=== PATIENT | female | born 1985 | race Caucasian/White ===

== ENCOUNTER 2016-07-14 02:25 | Inpatient (IN) | payer MEDICAID ==
[~2016-07-14] VITALS: Ht 165.1 cm; Wt 66.9 kg
[~2016-07-14 02:25] MED LIST: ACET325T33 PO; CALC-649 PO; FERR27TA PO; NITR-58 PO; PREN1TAB49 PO
[2016-07-14 03:02] VITALS: BP 116/60; PULSE 73; Ht 165.1 cm; Wt 66.9 kg
[2016-07-14] MEDS: LACTATED RINGER'S 1,000 ML IV SCH ×5 (03:30→16:47)
[2016-07-14] MEDS ORDERED: BUTORPHANOL 2 MG INJ IV PRN (09:30)
[2016-07-14] MEDS ORDERED: LIDOCAINE 1% (MPF) 30 ML INJ INJ PRN (09:30)
[2016-07-14] MEDS ORDERED: OXYTOCIN 30 UNITS/LR 500 ML IV SCH ×3 (09:30→11:00)
[2016-07-14] MEDS ORDERED: MISOPROSTOL 200 MCG TAB PR PRN ×3 (09:30→15:30)
[2016-07-14] MEDS ORDERED: AMPICILLIN 2 GM/NS (PMX) 100 ML IV ONE (09:30)
[2016-07-14] MEDS ORDERED: LACTATED RINGER'S 1,000 ML IV PRN (09:30)
[2016-07-14] MEDS ORDERED: OXYTOCIN 30 UNITS/LR 500 ML IV PRN ×3 (09:30→15:30)
[2016-07-14] MEDS ORDERED: CARBOPROST 250 MCG INJ IM PRN ×3 (09:30→15:30)
[2016-07-14] MEDS ORDERED: IBUPROFEN 600 MG TAB PO PRN (09:30)
[2016-07-14] MEDS ORDERED: METHYLERGONOVINE 0.2 MG INJ IM PRN ×3 (09:30→15:30)
[2016-07-14 10:05] LABS: ADD SCAN DIFF NO
[2016-07-14 10:09] LABS: BASOPHIL # 0.1 10^3/ul (0.0-0.1); BASOPHILS % 0.7 % (0.0-2.0); EOSINOPHILS # 0.1 10^3/ul (0.0-0.5); EOSINOPHILS % 0.6 % (0.0-7.0); HEMATOCRIT 41.5 % (37.0-47.0); HEMOGLOBIN 13.8 g/dl (12.0-16.0); LYMPHOCYTES # 1.7 10^3/ul (0.8-2.9); LYMPHOCYTES % 20.6 % (15.0-51.0); MEAN CORPUSCULAR HEMOGLOBIN 31.7 pg (29.0-33.0); MEAN CORPUSCULAR HGB CONC 33.3 g/dl (32.0-37.0); MEAN CORPUSCULAR VOLUME 95.2 fl (82.0-101.0); MEAN PLATELET VOLUME 11.1 fl (7.4-10.4); MONOCYTE # 0.9 10^3/ul (0.3-0.9); MONOCYTES % 10.7 % (0.0-11.0); NEUTROPHIL # 5.2 10^3/ul (1.6-7.5); NEUTROPHILS % 63.2 % (39.0-77.0); PLATELET COUNT 304 10^3/UL (140-415); RED BLOOD COUNT 4.36 10^6/ul (4.20-5.40); RED CELL DISTRIBUTION WIDTH 14.3 % (11.5-14.5); WHITE BLOOD COUNT 8.2 10^3/ul (4.8-10.8)
[2016-07-14 10:29] LABS: INR 0.88; PROTIME 11.9 Sec (12.2-14.2); PT RATIO 0.9
[2016-07-14 10:30] LABS: PARTIAL THROMBOPLASTIN TIME 28.6 Sec (25.0-35.0)
--- NOTE | 2016-07-14 10:36 | RADRPT ---
PROCEDURE: US OB. CLINICAL INDICATION: Size and dates , labor pain TECHNIQUE: Multiple sonographic images of the pelvis and gravid uterus were obtained. The images were reviewed on a PACS workstation. COMPARISON: No prior studies are available for comparison. FINDINGS: There is a single viable intrauterine gestation. Cardiac activity is present with 130 beats per min alexus. There is a transverse head maternal right presentation. The placenta is anterior. There is no evidence for an abruption or placenta previa. The placenta is thickened measuring 7.3 cm in thickness. Measurements were made in order to determine age. The results are as follows: BPD =9.9 cm HC =35.7 cm AC =37.9 cm FL =7.4 cm Estimated gestational age of approximately 40 weeks and 4 days based on ultrasound measurements. Clinical age: 38 weeks and 6 days. The EFW = 4263 g, >97%, based on LMP age. RPTAT: AA IMPRESSION: Single viable intrauterine gestation of approximately 40 weeks and 4 days based on ultrasound measu rements. Larger than clinical age by approximately 2 weeks. Thickened anterior placenta. .Ronak Centeno MD, Date Time Electronically viewed and signed by .Ronak Centeno MD, MD on 07/14/2016 10:35 .S/
[2016-07-14] MEDS ORDERED: HYDROmorphONE 1 MG/ML SYG IV PRN ×2 (11:00)
[2016-07-14] MEDS ORDERED: ONDANSETRON 4 MG INJ IV PRN ×2 (11:00)
[2016-07-14] MEDS ORDERED: MEPERIDINE 25 MG INJ IV PRN (11:00)
[2016-07-14] MEDS ORDERED: METOCLOPRAMIDE 10 MG INJ IV PRN (11:00)
[2016-07-14] MEDS ORDERED: FENTAnyl 50 MCG/ML VIAL IV PRN ×2 (11:00)
[2016-07-14] MEDS ORDERED: HYDROmorphONE (0.2 MG/ML) 10ML SYG IV PRN ×3 (11:00)
[2016-07-14] MEDS ORDERED: DIPHENHYDRAMINE 50 MG INJ IV PRN (11:00)
[2016-07-14] MEDS ORDERED: NALOXONE (0.4 MG/ML) INJ IV PRN (11:00)
[2016-07-14] MEDS ORDERED: CEFAZOLIN 2 GM/50 ML (PMX) 50 ML IV SCH (11:00)
[2016-07-14] MEDS ORDERED: morphine 2 MG INJ IV PRN ×2 (11:00)
[2016-07-14] MEDS ORDERED: ALBUTEROL 0.083% (NEB) 2.5 MG/3 ML AMP HHN ONE (11:00)
[2016-07-14] MEDS ORDERED: morphine (1 MG/ML) 10ML SYRINGE IV PRN ×3 (11:00)
[2016-07-14] MEDS ORDERED: KETOROLAC 15 MG INJ IV ONE (11:00)
[2016-07-14] MEDS ORDERED: KETOROLAC 30 MG INJ IV ONE (11:00)
[2016-07-14] MEDS ORDERED: morphine SULFATE/PF (10 MG/10 ML) INJ ONE (11:15)
[2016-07-14] MEDS ORDERED: PHENYLephrine (100 MCG/ML) 5ML SYG ONE ×4 (11:16→11:59)
[2016-07-14] MEDS ORDERED: FENTAnyl 50 MCG/ML VIAL ONE (11:44)
--- NOTE | 2016-07-14 11:54 | TRIAGE ---
OB Triage Datetime Report Generated by CPN: 07/14/2016 11:54 Datetime: 07/14/2016 11:24 Heart Rate FHR Baseline Rate: 150 Comments: POST SPINAL Datetime: 07/14/2016 11:03 Labor Evaluation Frequency: 2-3 Monitor Mode: External Duration (sec)2399: 50-110 Quality: Strong Pattern: Normal: <= 5 Contractions in 10 Minutes Resting Tone [place]: Relaxed Heart Rate FHR Baseline Rate: 140 Monitor Mode: External US FHR Baseline Changes: No Baseline Change Variability: Moderate 6-25 bpm Accelerations: 15X15 Decelerations: None Category: Category I Datetime: 07/14/2016 10:05 Assessment Type: Admission Assessment Maternal Assessment Level of Consciousness: Fully Conscious DTR's/Clonus: DTRs 2+; No Clonus Headache: Denies Blurred Vision: No Respiratory Effort: Unlabored; Regular Rhythm; Equal Expansion Breath Sounds, Left: Clear and Equal Breath Sounds, Right: Clear and Equal Nausea/Vomiting: Denies RUQ Epigastric Pain: Denies Lower Extremities Edema: None Degree: None Upper Extremities Edema: None Degree: None Facial Edema: None Fall Risk Assessment History of Falling: (0) No Secondary Diagnosis: (0) No Ambulatory Aid: (0) Bedrest/Nurse Assist IV Therapy: (20) Yes Gait: (0) Normal/Bedrest/Immobile Mental Status: (0) Oriented to Own Ability Fall Score: 20 Fall Risk Score Definition: No Risk: No action required Datetime: 07/14/2016 08:56 Labor Evaluation Frequency: IRREGULAR Monitor Mode: External Duration (sec)2399: 60-120 Quality: Moderate Pattern: Normal: <= 5 Contractions in 10 Minutes Resting Tone [place]: Relaxed Heart Rate FHR Baseline Rate: 130 Monitor Mode: External US FHR Baseline Changes: No Baseline Change Variability: Moderate 6-25 bpm Accelerations: 15X15 Decelerations: None Category: Category I Datetime: 07/14/2016 07:57 Labor Evaluation Frequency: IRREGULAR Monitor Mode: External Duration (sec)2399: 60-80 Quality: Moderate Pattern: Normal: <= 5 Contractions in 10 Minutes Resting Tone [place]: Relaxed Heart Rate FHR Baseline Rate: 130 Monitor Mode: External US Variability: Moderate 6-25 bpm Accelerations: 15X15 Decelerations: None Category: Category I Datetime: 07/14/2016 07:00 Labor Evaluation Frequency: 4-6 Monitor Mode: External Duration (sec)2399: 60-80 Pattern: Normal: <= 5 Contractions in 10 Minutes Heart Rate FHR Baseline Rate: 135 Monitor Mode: External US FHR Baseline Changes: No Baseline Change Variability: Moderate 6-25 bpm Decelerations: None Category: Category I Datetime: 07/14/2016 06:46 Pain Assessment Pain Scale: 7 Pain Presence: Intermittent Pain Type: Contraction Pain Location: Abdomen Pain Assessment Comments: PT. STATES UC'S ARE STRONGER Datetime: 07/14/2016 06:44 Monitor Mode: Palpation Quality: Moderate Datetime: 07/14/2016 06:42 Monitor Mode: External US Datetime: 07/14/2016 06:00 Labor Evaluation Frequency: 4-5 Monitor Mode: External Duration (sec)2399: 40-50 Pattern: Normal: <= 5 Contractions in 10 Minutes Heart Rate FHR Baseline Rate: 135 Monitor Mode: External US FHR Baseline Changes: No Baseline Change Variability: Moderate 6-25 bpm Decelerations: None Category: Category I Datetime: 07/14/2016 05:27 Monitor Mode: Palpation Quality: Strong Monitor Mode: External US Datetime: 07/14/2016 05:22 Monitor Mode: Palpation Quality: Moderate Vaginal Exam Dilatation (cms): 1.0 Effacement (%): 60 Station: -3 Exam By: ChristenZACH Vaginal Bleeding: None Cervix, Consistency: Moderate Cervix, Position: Posterior Presentation 'A': Unable to Assess Datetime: 07/14/2016 04:59 Labor Evaluation Frequency: 1.5-5 Monitor Mode: External Duration (sec)2399: 50-90 Pattern: Normal: <= 5 Contractions in 10 Minutes Heart Rate FHR Baseline Rate: 135 Monitor Mode: External US FHR Baseline Changes: No Baseline Change Variability: Moderate 6-25 bpm Accelerations: 15X15 Decelerations: None Category: Category I Datetime: 07/14/2016 04:00 Labor Evaluation Frequency: 2-5 Monitor Mode: External Duration (sec)2399: 60-90 Pattern: Normal: <= 5 Contractions in 10 Minutes Heart Rate FHR Baseline Rate: 130 Monitor Mode: External US FHR Baseline Changes: No Baseline Change Variability: Moderate 6-25 bpm Accelerations: 15X15 Decelerations: None Category: Category I Datetime: 07/14/2016 03:00 Labor Evaluation Frequency: 4-7 Monitor Mode: External Duration (sec)2399: 60-80 Pattern: Normal: <= 5 Contractions in 10 Minutes Heart Rate FHR Baseline Rate: 135 Monitor Mode: External US FHR Baseline Changes: No Baseline Change Variability: Moderate 6-25 bpm Pain Assessment Pain Scale: 5 Pain Presence: Intermittent Pain Type: Contraction Pain Location: Abdomen Pain Relief Measures: Comfort Measures Datetime: 07/14/2016 02:48 Vaginal Exam Dilatation (cms): 0.5 Effacement (%): 50 Station: -3 Exam By: JANAE Vaginal Bleeding: None Cervix, Consistency: Moderate Cervix, Position: Posterior Presentation 'A': Unable to Assess Datetime: 07/14/2016 02:42 Assessment Type: Triage Maternal Assessment Level of Consciousness: Fully Conscious Headache: Denies Blurred Vision: No Respiratory Effort: Unlabored; Regular Rhythm; Equal Expansion Nausea/Vomiting: Denies RUQ Epigastric Pain: Denies Facial Edema: None Fall Risk Assessment History of Falling: (0) No Secondary Diagnosis: (0) No Ambulatory Aid: (0) Bedrest/Nurse Assist IV Therapy: (0) No Gait: (0) Normal/Bedrest/Immobile Mental Status: (0) Oriented to Own Ability Fall Score: 0 Fall Risk Score Definition: No Risk: No action required Datetime: 07/14/2016 02:40 Time of Arrival: 07/14/2016 09:41 EGA: 38.6 Arrived By: Ambulatory Arrived From: Home Datetime: 07/14/2016 02:37 Time of Arrival: 07/14/2016 02:22 Arrived By: Wheelchair Arrived From: Home Chief Complaint: UC'S Movement: Present Contractions: Regular Time Contractions Began: 07/13/2016 18:00 Contractions: Q5-10MIN Rupture of Membranes: Denies Vaginal Bleeding: None Vaginal Discharge: Denies Recent Sexual Intercouse: Denies Abdominal Trauma: Not Applicable Patient Complaints: Contractions Time Provider Notified: 07/14/2016 03:03 Provider Notified: CLAUDIA Initial Plan: RODRÍGUEZ PRESSLEY,CALL OB
--- NOTE | 2016-07-14 12:16 | HP ---
Date/Time of Note Date/Time of Note DATE: 07/14/16 TIME: 12:14 OB - History Hx of Present Free Text/Dictation @38+6 wks GA in labor Tranverse Mild Macrosomia : 4 Para: 2 Care: Good Care Ultrasounds: Normal mid trimester US Obstetrical Complications: None Medical Complications: None Past Family/Social History * Past Medical, Surgical, Family and Obstetric Histories reviewed from chart. OB Admission Exam Vital Signs Vital Signs Vital Signs Date Time Temp Pulse Resp B/P Pulse Ox O2 Delivery O2 Flow Rate FiO2 07/14/16 03:02 98.1 73 116/60 Room Air Physical Exam Abdomen: WNL Extremities: Normal Cervical Dilatation: 2cm Effacement: 75% Station: -1 Membranes: Intact Heart Rate: 140's Accelerations: Accelerations Present Decelerations: No Decelerations Varibility: Moderate Contractions on Admission: < 5 Minutes Apart Last 72 hours Lab Results CBC & BMP 07/14/16 08:45 OB Assessment/Plan Reason for admission: observation Plan: Section Other plan: @38+6 wks GA in labor Tranverse Mild Macrosomia KRIS TAYLOR M.D. Jul 14, 2016 12:16
--- NOTE | 2016-07-14 12:21 | OPR ---
Operative Report Planned Procedure Free Text/Dictation @38+6 wks GA in labor Tranverse Mild Macrosomia Procedure date Jul 14, 2016 Procedure(s) Repeat c/section +BTL Performed by: KRIS TAYLOR M.D. Assisting provider: AIMEE ROME MD Pre-procedure diagnosis @38+6 wks GA in labor Tranverse Mild Macrosomia Anesthesia Type: spinal Procedure Description Under satisfactory [] anesthesia, the patient was prepped and draped and placed in a supine position, tilted to the left. Pfannenstiel incision was made, carried through the subcutaneous tissue. Bleeders brought under control with electrocautery. Fascia incised to the length of the incision. Rectus muscles from the fascia, divided midline. Peritoneum exposed, entered through a transverse incision. Exploration of abdomen revealed gravid uterus. Bladder flap was developed. Transverse incision was made in the lower segment of the uterus. Amniotic sac ruptured. [] amniotic fluid noted. [] Nasal oropharyngeal suction was performed. The baby was handed to the team for immediate attention. The placenta was delivered manually intact. Uterine cavity was cleaned with wet sponge and drainage established. Uterus closed in 2 layers using [] in continuous fashion. Peritoneal cavity irrigated with warm saline. Sponge, needle and instrument count reported to be correct. Right fallopian tube wasw grasped and tied and cut in the midline.Left tube was grasped and the same procedure done on the other side(maggy method)Abdominal peritoneum closed with [] continuously. Rectus muscle approximated with []. Fascia closed with [], and skin closed with dermobande. Estimated blood loss [600]mL. Urine bag contained []mL of urine Post-Procedure Post-procedure diagnosis @38+6 wks GA in labor Tranverse Mild Macrosomia Findings: Live Baby [], Apgars [] and [], weight [], position [], [] presentation []cord. Specimen removed: Yes Complications: None Pt Condition post procedure: stable Disposition: PACU Physician Certification I, the undersigned physician, hereby certify that I have discussed the procedure described in this consent form with this patient (or the patient's legal sales promotion representative), including: * The risk and benefits of the procedure; * Any adverse reactions that may reasonably be expected to occur; * Any alternative efficacious methods of treatment which may be medically viable ; * The potential problems that may occur during recuperation; * Potential for blood transfusion and associated risks/benefits; and * Any research or economic interest I may have regarding this treatment. I further certify that the patient/legally responsible person was encouraged to ask question and that all questions were answered. KRIS TAYLOR M.D. Jul 14, 2016 12:20
[2016-07-14] MEDS ORDERED: AMPICILLIN 1 GM/NS (PMX) 50 ML IV SCH (13:00)
[2016-07-14 14:40] VITALS: BP 105/58; PULSE 67; RESP 16
[2016-07-14 15:10] VITALS: BP 111/70; PULSE 80; RESP 18
[2016-07-14] MEDS: KETOROLAC 30 MG INJ IV PRN (15:15)
[2016-07-14] MEDS ORDERED: LANOLIN 7 GM TUBE TOP PRN (15:30)
[2016-07-14 17:00] VITALS: BP 98/56; PULSE 80; RESP 18
[2016-07-14] MEDS: DIPHENHYDRAMINE 50 MG INJ IV PRN (17:31)
[2016-07-14] MEDS: IBUPROFEN 600 MG TAB PO SCH (18:00)
[2016-07-14 20:00] VITALS: BP 107/52; PULSE 95; RESP 17
[2016-07-14] MEDS: SENNA/DOCUSATE NA (8.6MG/50MG) TAB PO SCH (21:00)
[2016-07-15] VITALS: BP 100/54; PULSE 86; RESP 18
[2016-07-15] MEDS: LACTATED RINGER'S 1,000 ML IV SCH ×3 (00:59→15:06)
[2016-07-15] MEDS: DIPHENHYDRAMINE 50 MG INJ IV PRN (00:59)
[2016-07-15] MEDS: KETOROLAC 30 MG INJ IV PRN ×2 (02:20→09:02)
[2016-07-15 04:00] VITALS: BP 86/52; PULSE 74; RESP 17
[2016-07-15] MEDS: IBUPROFEN 600 MG TAB PO SCH ×5 (06:00→23:35)
[2016-07-15 07:52] LABS: ADD SCAN DIFF NO
[2016-07-15 08:00] VITALS: BP 97/48; PULSE 73; RESP 18
[2016-07-15 08:00] LABS: BASOPHILS % 0.3 % (0.0-2.0); EOSINOPHILS % 0.4 % (0.0-7.0); HEMATOCRIT 31.1 % (37.0-47.0); HEMOGLOBIN 10.3 g/dl (12.0-16.0); LYMPHOCYTES # 1.6 10^3/ul (0.8-2.9); LYMPHOCYTES % 15.9 % (15.0-51.0); MEAN CORPUSCULAR HEMOGLOBIN 31.5 pg (29.0-33.0); MEAN CORPUSCULAR HGB CONC 33.1 g/dl (32.0-37.0); MEAN CORPUSCULAR VOLUME 95.1 fl (82.0-101.0); MEAN PLATELET VOLUME 10.9 fl (7.4-10.4); MONOCYTE # 1.1 10^3/ul (0.3-0.9); MONOCYTES % 10.7 % (0.0-11.0); NEUTROPHIL # 7.2 10^3/ul (1.6-7.5); NEUTROPHILS % 71.1 % (39.0-77.0); PLATELET COUNT 262 10^3/UL (140-415); RED BLOOD COUNT 3.27 10^6/ul (4.20-5.40); RED CELL DISTRIBUTION WIDTH 14.6 % (11.5-14.5); WHITE BLOOD COUNT 10.1 10^3/ul (4.8-10.8)
[2016-07-15] MEDS ORDERED: INFLUENZA VIRUS VACCINE 0.5 ML (DISPENSING) IM* ONE (09:00)
[2016-07-15] MEDS: SENNA/DOCUSATE NA (8.6MG/50MG) TAB PO SCH ×2 (09:02→20:56)
[2016-07-15] MEDS: OXYCODONE/ACETAMINOPHEN (5/325) TAB PO PRN ×2 (13:36→19:28)
[2016-07-15 16:00] VITALS: BP 96/62; PULSE 71; RESP 18
[2016-07-15 20:00] VITALS: BP 99/59; PULSE 92; RESP 18
[2016-07-16 04:20] VITALS: BP 99/52; PULSE 74; RESP 16
[2016-07-16] MEDS: IBUPROFEN 600 MG TAB PO SCH ×4 (05:41→23:32)
[2016-07-16 08:00] VITALS: BP 105/73; PULSE 76; RESP 18
--- NOTE | 2016-07-16 08:59 | QN ---
Documentation Comment Late Entry: 05/17/16 POD#1 is satble afebrile tolerates diet No VB +BM +Voids VS stable Gen NAD Abd soft NT ND INcision intact --->Discharge plan tomorrow --->ambulation KRIS TAYLOR M.D. Jul 16, 2016 08:59
[2016-07-16] MEDS: SENNA/DOCUSATE NA (8.6MG/50MG) TAB PO SCH ×2 (09:03→21:12)
[2016-07-16] MEDS: OXYCODONE/ACETAMINOPHEN (5/325) TAB PO PRN (15:23)
[2016-07-16 16:00] VITALS: BP 95/51; PULSE 74; RESP 18
[2016-07-16 19:55] VITALS: BP 99/54; PULSE 86; RESP 18
[2016-07-17 04:20] VITALS: BP 96/55; PULSE 79; RESP 18
[2016-07-17] MEDS: IBUPROFEN 600 MG TAB PO SCH ×2 (06:09→11:42)
[2016-07-17 09:00] VITALS: BP 104/60; PULSE 79; RESP 18
[2016-07-17] MEDS ORDERED: DIPHTH/TET/ACEL PERTUSS (ADULT) 0.5 ML VIAL IM* ONE (09:00)
[2016-07-17] MEDS: SENNA/DOCUSATE NA (8.6MG/50MG) TAB PO SCH (10:15)
[2016-07-17 15:50] VITALS: BP 113/68; PULSE 79; RESP 17
== END 2016-07-17 17:26 | disposition home or self-care (01) | DRG 766 ==
LOC: OBT 02:25 → L-D 02:25 → OBT 09:25 → L-D 09:25 → PP1 14:42
PROVIDERS: ADMIT Obstetrics & Gynecology; ATTEND Obstetrics & Gynecology
PROC: 0UB70ZZ Excision of Bilateral Fallopian Tubes, Open Approach (ICD-10-PCS; 2016-07-14)
PROC: 10D00Z1 Extraction of Products of Conception, Low, Open Approach (ICD-10-PCS; principal; 2016-07-14 11:00)
DX: O34.211 Maternal care for low transverse scar from previous cesarean delivery (principal); O36.63X0 Maternal care for excessive fetal growth, third trimester, not applicable or unspecified; Z3A.38 38 weeks gestation of pregnancy; Z37.0 Single live birth
CPT/HCPCS: 36415; 76815; 85025; 85610; 85730; 86592; 86850; 86900; 86901; 87340; 88302; 90686; 90715; 96360; 96361; 99464; G0463; J0290; J0690; J1200; J1885; J2274; J2370; J2405; J2590; J3010; J7120